=== PATIENT | male | born 1980 ===

== ENCOUNTER 2017-01-29 22:37 | Emergency (ER) | payer OTHER ==
[2017-01-29 22:54] VITALS: BP 151/101; PULSE 71; RESP 16; TEMP 98.7; O2SAT 100
[2017-01-30 00:26] LABS: BASO # 0.1 K/uL (0.0-0.2); EOS # 0.3 K/uL (0.0-0.7); EOS % 3.1 % (0.0-4.0); HEMATOCRIT 45.1 % (35.0-51.0); LYMPH % 34.7 % (20.0-40.0); MEAN CELL VOLUME 82.3 fl (80.0-94.0); MEAN CORPUSCULAR HEMOGLOBIN 27.2 pg (27.0-31.0); MEAN CORPUSCULAR HGB CONC 33.1 g/dL (33.0-37.0); MEAN PLATELET VOLUME 8.2 fl (7.2-11.7); MONO # 0.7 K/uL (0.0-0.8); MONO % 8.3 % (0.0-10.0); NEUT # 4.6 K/uL (1.8-7.0); NEUT % 52.9 % (50.0-75.0); NRBC % 0.1 % (0.0-0.0); RED CELL DISTRIBUTION WIDTH 13.2 % (11.5-14.5); WHITE BLOOD COUNT 8.6 K/uL (4.8-10.8)
[2017-01-30 00:52] LABS: BLOOD UREA NITROGEN 18 mg/dl (9-20); CALCIUM 9.1 mg/dL (8.4-10.2); CARBON DIOXIDE 26 mmol/L (22-30); CHLORIDE 101 mmol/L (98-107); GFR AFRICAN-AMERICAN > 60; GLUCOSE,RANDOM 101 mg/dL (75-110); POTASSIUM 3.8 MMOL/L (3.6-5.0); SODIUM 137 mmol/l (132-148)
--- NOTE | 2017-01-30 01:47 | ED PDOC ---
HPI: Headache Time Seen by Provider: 01/29/17 22:57 Chief Complaint (Nursing): Headache Chief Complaint (Provider): Headache History Per: Patient History/Exam Limitations: no limitations Onset/Duration Of Symptoms: Days (x 10 days), Persistent Severity: Mild Pain Scale Rating Of: 3 Associated Symptoms: Other (No gait disturbance). denies: Photophobia, Blurred Vision, Nausea, Vomiting Additional Complaint(s): Patient is a 36 y/o male with a past medical history of hypertension and a transient ischemic attack, who presents to the ED complaining of right sided headache x 10 days. Patient describes the pain as mild but persistent with a scale rating of 3/10, but denies any nausea, vomiting, visual changes, or gait disturbance. Patient reports he has been working excessively and attributes his symptoms to work, and states he became concerned due to his previous history of a mini stroke. He also denies any weakness, numbness, or disability. PCP: Provider TYRONE Past Medical History Reviewed: Historical Data, Nursing Documentation, Vital Signs Vital Signs: Last Vital Signs Temp 98.7 F 01/29/17 22:51 Pulse 71 01/29/17 22:51 Resp 16 01/29/17 22:51 BP 151/101 H 01/29/17 22:51 Pulse Ox 100 01/29/17 22:51 - Medical History PMH: Diabetes (borderline but lost weight so improved), HTN (taking lisinopril) , Hypercholesterolemia (diet controlled, losing weight), TIA - Family History Family History: States: Diabetes, Hypertension - Social History Current smoker - smoking cessation education provided: No Alcohol: None Drugs: Denies - Home Medications Home Medications: Ambulatory Orders Medication Instructions Recorded Aluminum Hydroxide/Magnesium 20 ml PO QID #150 deniz 01/29/14 [Mylanta 150 ml] Omeprazole Magnesium [Prilosec Otc] 20 mg PO DAILY #30 tcp 01/29/14 Gentamicin 0.3% Opht [Genoptic 1 drop OD QID 10 Days bottle 03/08/14 0.3% Opht] Ibuprofen [Motrin] 600 mg PO Q8 #30 tab 03/29/15 - Allergies Allergies/Adverse Reactions: Allergies Allergy/AdvReac Type Severity Reaction Status Date / Time No Known Allergies Allergy Verified 01/29/17 22:51 Review of Systems ROS Statement: Except As Marked, All Systems Reviewed And Found Negative Eyes: Negative for: Vision Change Gastrointestinal: Negative for: Nausea, Vomiting Neurological: Positive for: Headache, Other (no gait disturbance). Negative for : Weakness, Numbness Physical Exam - Reviewed Nursing Documentation Reviewed: Yes Vital Signs Reviewed: Yes - Physical Exam Appears: Positive for: No Acute Distress Head Exam: Positive for: ATRAUMATIC, NORMOCEPHALIC Skin: Positive for: Normal Color, Warm, Dry Eye Exam: Positive for: Normal appearance, EOMI, PERRL Neck: Positive for: Normal, Painless ROM, Supple Cardiovascular/Chest: Positive for: Regular Rate, Rhythm. Negative for: Murmur Respiratory: Positive for: Normal Breath Sounds. Negative for: Respiratory Distress Gastrointestinal/Abdominal: Positive for: Normal Exam, Soft. Negative for: Tenderness Back: Positive for: Normal Inspection. Negative for: L CVA Tenderness, R CVA Tenderness, Vertebral Tenderness Extremity: Positive for: Normal ROM. Negative for: Pedal Edema, Deformity Neurologic/Psych: Positive for: Alert, Oriented (x3). Negative for: Motor/ Sensory Deficits - Laboratory Results Result Diagrams: 01/30/17 00:23 01/30/17 00:23 - ECG O2 Sat by Pulse Oximetry: 100 (RA) Pulse Ox Interpretation: Normal Medical Decision Making Medical Decision Making: Time: 23:29 Initial Impression: 36 y/o male with persistent headache in setting of previous stroke and hypertension Initial Plan: --CT Head W/O Contrast --Labs --Heplock Insertion 00:19 CT Head W/O Contrast Results FINDINGS: Brain: Subcentimeter hypodensities in the right cerebellar hemisphere suspicious for lacunar infarcts but are stable since the prior study. No intracranial hemorrhage. No evidence of evolved territorial infarct or cerebral edema. No mass effect or midline shift. Ventricles: Unremarkable. No ventriculomegaly. Bones/joints: No acute osseous abnormality. Soft tissues: No soft tissue swelling. Sinuses: Visualized paranasal sinuses are clear. Mastoid air cells: Mastoid air cells are well-aerated. IMPRESSION: No acute intracranial findings. 00:45 -Patient was counseled as to the benign nature of his results, will follow up with his primary care provider at [facility] Clinical Impression: Headache Scribe Attestation: Documented by Yarelis Martinez, acting as a scribe for Katie Alaniz MD Provider Scribe Attestation: All medical record entries made by the Scribe were at my direction and personally dictated by me. I have reviewed the chart and agree that the record accurately reflects my personal performance of the history, physical exam, medical decision making, and the department course for this patient. I have also personally directed, reviewed, and agree with the discharge instructions and disposition. Disposition - Clinical Impression Clinical Impression: Headache - Patient ED Disposition Is Patient to be Admitted: No - Disposition Disposition: Routine/Home Disposition Time: 00:45 Condition: STABLE Instructions: Acute Headache (ED) Forms: [facility] (Nepali)
--- NOTE | 2017-01-30 11:17 | CT ---
PROCEDURE: CT HEAD WITHOUT CONTRAST. HISTORY: Headache COMPARISON: 03/29/2015. TECHNIQUE: Axial computed tomography images were obtained through the head/brain without intravenous contrast. Radiation dose: Total exam DLP = mGy-cm. This CT exam was performed using one or more of the following dose reduction techniques: Automated exposure control, adjustment of the mA and/or kV according to patient size, and/or use of iterative reconstruction technique. FINDINGS: HEMORRHAGE: No intracranial hemorrhage. 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 There is no mass, mass effect or abnormal extra-axial fluid collection. VENTRICLES: There is mild global parenchymal volume loss, advanced for the patient's age. CALVARIUM: The skull base and calvarium are normal. PARANASAL SINUSES: Predominantly clear. MASTOID AIR CELLS: Predominantly clear. OTHER FINDINGS: None. IMPRESSION: No acute intracranial abnormality. Mild global parenchymal volume loss, advanced for the patient's age. A preliminary report was provided by [employer] services.
== END 2017-01-30 01:20 | disposition home or self-care (01) ==
LOC: H.ER 22:37
DX: R51 Headache (principal); E78.00 Pure hypercholesterolemia, unspecified; I10 Essential (primary) hypertension; Z86.73 Personal history of transient ischemic attack (TIA), and cerebral infarction without residual deficits